=== PATIENT | male | born 1940 | race Caucasian/White ===

== ENCOUNTER → 2019-03-20 | Outpatient (CLI) | payer MEDICARE, OTHER ==
[~2019-03-20] VITALS: Ht 175.3 cm; Wt 90.7 kg
[2019-03-20 09:55] VITALS: BP 146/62
[2019-03-20 10:01] LABS: HEMATOCRIT 41.1 % (42.0-52.0); HEMOGLOBIN 14.3 gm/dL (14.0-18.0); MCH 30.6 pg (26.0-34.0); MCHC 34.9 g/dL (28.0-37.0); MCV 87.7 fL (80.0-100.0); MPV 7.6 fl. (7.2-11.1); RBC 4.68 mil/uL (4.50-6.00); RDW-CV 13.4 % (10.5-14.5); WBC 6.6 thou/uL (4.0-11.0)
[2019-03-20 10:13] LABS: CALCIUM 9.3 mg/dL (8.5-10.1); CREATININE 0.8 mg/dL (0.6-1.3); POTASSIUM 4.2 mmol/L (3.5-5.1)
[2019-03-20 10:17] LABS: APTT 30.1 Seconds (25.0-31.3); PROTIME 10.5 Seconds (9.20-11.50)
== END | disposition home or self-care (01) ==
LOC: M.ULTRA 08:45
PROVIDERS: Radiology Diagnostic Radiology
DX: C61 Malignant neoplasm of prostate (principal); I10 Essential (primary) hypertension; E78.00 Pure hypercholesterolemia, unspecified; I25.10 Atherosclerotic heart disease of native coronary artery without angina pectoris; F17.210 Nicotine dependence, cigarettes, uncomplicated; Z96.652 Presence of left artificial knee joint; Z98.890 Other specified postprocedural states; Z79.899 Other long term (current) drug therapy; Z79.01 Long term (current) use of anticoagulants